=== PATIENT | female | born 1965 | race Caucasian/White ===

== ENCOUNTER 2020-08-28 15:35 | Emergency (ER) | payer BC, SELFPAY ==
--- NOTE | ~2020-08-28 | XR_ITS ---
EXAMINATION: XR chest 2V DATE: 08/28/2020 16:45 INDICATION: Cough TECHNIQUE: PA and lateral views of the chest are obtained. COMPARISON: None available FINDINGS: There are patchy bilateral opacities of the lungs. There is no pleural effusion or pneumoth orax. The cardiomediastinal silhouette is normal. IMPRESSION: 1. Patchy bilateral airspace opacities which could reflect pneumonia, atelectasis, or pulmonary edema . Reviewed, dictated and finalized at location A. IMPRESSION: 1. Patchy bilateral airspace opacities which could reflect pneumonia, atelectas is, or pulmonary edema.
[2020-08-28 15:59] VITALS: BP 123/89; PULSE 114; RESP 20; TEMP 37.4; O2SAT 96
--- NOTE | 2020-08-28 16:33 | ED.URI ---
HPI - URI/Sore Throat General Chief Complaint: Upper Respiratory Infection Stated Complaint: Sore Throat Time Seen by Provider: 08/28/20 16:15 Source: patient and RN notes reviewed Mode of arrival: ambulatory Limitations: no limitations History of Present Illness HPI Narrative: Patient presents today with a 2-day history of sore throat, fatigue, cough, sneezing, headache. States, it is hard to take a deep breath . Reports what she means by this is that is very painful in her throat when she tries to take a deep breath. She denies shortness of breath. Denies fever, nausea, vomiting, diarrhea. She currently rates her sore throat 10/10 as it is painful when she swallows. She has tried DayQuil and NyQuil without relief. Patient switched from cigarettes and now vapes. She has not had any Covid vaccinations yet. MD elicited complaint: cough and sore throat Related Data Home Medications Medication Instructions Recorded Confirmed fluoxetine 30 mg PO DAILY 08/28/20 08/28/20 levothyroxine 200 mcg PO DAILY 08/28/20 08/28/20 naltrexone 50 mg PO HS 08/28/20 08/28/20 quetiapine 100 mg PO .QEVENING 08/28/20 08/28/20 tizanidine 4 mg PO HS 08/28/20 08/28/20 ubrogepant [Ubrelvy] 100 mg PO .PRN 08/28/20 08/28/20 Allergies Allergy/AdvReac Type Severity Reaction Status Date / Time No Known Allergies Allergy Mild Verified 08/28/20 16:19 Review of Systems Review of Systems: Narrative: CONSTITUTIONAL: Denies body aches, fever, chills, or sweats. +fatigue EYES: Denies visual changes, redness, or discharge. ENT: Denies rhinorrhea, congestion, or otalgia. +sore throat, sneezing CARDIOVASCULAR: Denies chest pain, palpitations, or edema. RESPIRATORY: Denies dyspnea.+cough GASTROINTESTINAL: Denies abdominal pain, nausea, vomiting, or diarrhea. GENITOURINARY: Denies dysuria or hematuria. SKIN: Denies rash, itching, or wounds. MUSCULOSKELETAL: Denies back pain, joint pain, or myalgia. NEUROLOGIC: Denies numbness, tingling, or weakness. headache-none currently present PSYCH: Denies depression or anxiety. PMFSH Past Medical History Medical History (Updated 08/28/20 @ 17:10 by Radha Romero, [facility], ) Hypothyroidism Migraines Social History Social History (Updated 08/28/20 @ 16:49 by Radha Romero, [facility], ) Smoking status: Current every day smoker Tobacco type: e-cigarettes/vaping Exam Narrative: Exam Narrative: GENERAL: Mildly ill-appearing, well-nourished, and in no acute distress. HEAD: Normocephalic, atraumatic. EYES: EOMI. No redness or drainage. Conjunctivae normal. ENT: Mucous membranes pink and moist. Nares clear. No rhinorrhea. TMs normal bilaterally. Throat is erythematous posteriorly without edema or exudate. Uvula midline. NECK: Normal AROM. Supple. Bilateral anterior and left posterior cervical chain lymphadenopathy. CHEST: No respiratory distress. Clear to auscultation. HEART: Regular rate and rhythm. No murmur appreciated. Normal peripheral pulses. EXTREMITIES: Normal range of motion. No edema. SKIN: Warm, dry, no rash. Capillary refill normal. Normal skin turgor. NEURO: No focal deficits. Alert and oriented x3. Gait steady. PSYCH: Normal affect. No signs of depression or anxiety. Course Vital Signs Vital signs: Vital Signs Temperature 99.4 F 08/28/20 15:59 Pulse Rate 114 H 08/28/20 15:59 Respiratory Rate 08/28/20 15:59 Blood Pressure 123/89 08/28/20 15:59 Pulse Oximetry 96 08/28/20 15:59 Temperature 99.4 F 08/28/20 15:59 Pulse Rate 114 H 08/28/20 15:59 Respiratory Rate 20 08/28/20 15:59 Blood Pressure 123/89 08/28/20 15:59 Pulse Oximetry 96 08/28/20 15:59 Reviewed. Pt has been instructed to follow up with her PCP regarding her elevated blood pressure today. MDM - URI/Sore Throat Differential Diagnosis Differential diagnosis: Likely upper respiratory infection, sinusitis, viral infection, bronchitis, pharyngitis and other (COVID-19, strep throat, pne
--- NOTE | 2020-08-28 16:39 | PC.NURSE ---
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
[2020-08-29 19:03] LABS: SARS-CoV-2 RNA PCR Negative
== END 2020-08-28 17:20 | disposition home or self-care (01) ==
PROVIDERS: Emergency Provider Nurse Practitioner; PCP Internal Medicine
DX: J18.9 Pneumonia, unspecified organism (principal); Z20.822 Contact with and (suspected) exposure to COVID-19; F17.200 Nicotine dependence, unspecified, uncomplicated; E03.9 Hypothyroidism, unspecified
CPT/HCPCS: 71046; 87081; 87426; 87880; 99203; C9803; G0463; U0003; U0005

== ENCOUNTER 2020-11-08 15:10 | Emergency (ER) | payer BC, SELFPAY ==
--- NOTE | ~2020-11-08 | XR_ITS ---
XR chest 2V DATE: 11/08/2020 15:50 INDICATION: Pneumonia follow-up TECHNIQUE: 2 views COMPARISON: 08/28/2020 PA and lateral chest FINDINGS: Heart size is within normal limits. No pulmonary infiltrate or consolidation, pleural effus ion or pulmonary vascular congestion or pneumothorax. Degenerative spurring of the thoracic spine. IMPRESSION: No active cardiopulmonary disease Reviewed, dictated and finalized at location A.
[2020-11-08 15:20] VITALS: BP 112/87; PULSE 105; RESP 16; TEMP 37.4; O2SAT 98
--- NOTE | 2020-11-08 15:43 | ED.URI ---
HPI - URI/Sore Throat General Chief Complaint: Upper Respiratory Infection Stated Complaint: left side pain Time Seen by Provider: 11/08/20 15:43 Source: patient Mode of arrival: ambulatory Limitations: no limitations History of Present Illness HPI Narrative: Laura Renteria is a 55 yo female with a PMH of sob, pneumonia, who comes here complaining of difficulty taking a deep breath again as she was seen here in August and was diagnosed with pneumonia. She was seen in follow-up by her primary care physician who did not gave her another course of antibiotics (Augmentin) and did an EKG in our office. She again had another visit where she was started on Levaquin. Patient states that she was feeling better for couple weeks but has begun to feel the same way again with difficulty taking a deep breath, pain, she is tachycardic on presentation. O2 sat is 98%. She called her primary care physician and try to get in to see her today but she was unable to get an appointment Related Data Home Medications Medication Instructions Recorded Confirmed fluoxetine 30 mg PO DAILY 08/28/20 11/08/20 levothyroxine 200 mcg PO DAILY 08/28/20 11/08/20 naltrexone 50 mg PO HS 08/28/20 11/08/20 quetiapine 100 mg PO .QEVENING 08/28/20 11/08/20 tizanidine 4 mg PO HS 08/28/20 11/08/20 ubrogepant [Ubrelvy] 100 mg PO .PRN 08/28/20 11/08/20 Allergies Allergy/AdvReac Type Severity Reaction Status Date / Time No Known Allergies Allergy Mild Verified 08/28/20 16:19 Review of Systems Review of Systems: Narrative: CONSTITUTIONAL: Denies fever, chills, sweats. EYES: Denies visual changes, redness, discharge. ENT: Denies rhinorrhea, congestion, sore throat, otalgia. CARDIOVASCULAR: Denies chest pain, palpitations, edema. RESPIRATORY: Denies dyspnea, wheezing, cough-patient states cannot take a full breath because of pain in LLL GASTROINTESTINAL: Denies abdominal pain, nausea, vomiting, diarrhea. GENITOURINARY: Denies dysuria, hematuria, abnormal discharge SKIN: Denies rash or itching. NEUROLOGIC: Denies numbness, or focal weakness. PSYCHIATRIC: Denies anxiety or depression. PMFSH Past Medical History Medical History Hypothyroidism Migraines Social History Social History Smoking status: Current every day smoker Tobacco type: e-cigarettes/vaping Comments At time of signature, I agree with nursing past medical, surgical, social and family history. There is no relevant family history pertinent to the presenting complaint. Exam Narrative: Exam Narrative: GENERAL: This is a well-nourished, well-developed patient, in mild distress. HEAD: normocephalic, atraumatic. EYES: Sclera clear/white. Vision is grossly intact. EARS: External ears normal, auditory canals clear and without drainage, TMs normal without perforation. Hearing grossly intact. NOSE: External nose normal without nasal discharge, nares without redness, no rhinorrhea. THROAT: Mucous membranes moist, posterior pharynx erythema NECK: Neck supple, non-tender CARDIOVASCULAR: Regular rate and rhythm without murmurs, gallops, or rubs. RESPIRATORY: Diminished r to auscultation. Breath sounds decreased posterior left and upper right; pain on the left anterior lower ribsi. GASTROINTESTINAL: Abdomen soft, SKIN: warm, intact with no suspicious lesions or rash, good texture and turgor. NEURO: awake, alert, and oriented to person, place and time. There were no obvious focal neurologic abnormalities. Steady gait EXTREMITIES: Normal range of motion. BACK: Nontender without deformity Course Course Emergency Course: Patient comes to [facility] for reevaluation of chest pain and difficulty breathing after being seen here 2 months ago for pneumonia and having 3 primary care visits and multiple antibiotics since that time Chest x-ray is clear but patient can not take deep breaths has diminished romulo
[2020-11-08 16:50] VITALS: PULSE 108; RESP 17; O2SAT 98
[2020-11-08 17:20] VITALS: PULSE 102; RESP 17; O2SAT 98
== END 2020-11-08 17:30 | disposition home or self-care (01) ==
PROVIDERS: Emergency Provider Nurse Practitioner
DX: R07.81 Pleurodynia (principal); R06.89 Other abnormalities of breathing; F17.200 Nicotine dependence, unspecified, uncomplicated; E03.9 Hypothyroidism, unspecified; Z98.84 Bariatric surgery status; M19.90 Unspecified osteoarthritis, unspecified site; M51.36 Other intervertebral disc degeneration, lumbar region; Z90.711 Acquired absence of uterus with remaining cervical stump; F32.9 Major depressive disorder, single episode, unspecified
CPT/HCPCS: 71046; 94640; 99213; G0463